=== PATIENT | male | born 1950 | race Caucasian/White ===

== ENCOUNTER 2020-03-18 06:54 | Outpatient (NON) | payer MEDICARE, SELFPAY ==
[2020-03-18 22:15] LABS: SARS-CoV-2 RNA PCR Negative
== END 2020-03-18 06:55 ==
PROVIDERS: Visit Provider Nurse Practitioner
DX: Z20.822 Contact with and (suspected) exposure to COVID-19 (principal)
CPT/HCPCS: C9803; U0003; U0005

== ENCOUNTER 2024-07-29 11:04 | Emergency (ER) | payer MEDICARE, SELFPAY ==
--- NOTE | ~2024-07-29 | CT_ITS ---
CLINICAL INDICATION: Left flank pain COMPARISON: None. TECHNIQUE: Multiple contiguous axial images of the abdomen and pelvis were performed following the ad ministration of with 100 mL Omnipaque-350 intravenous contrast The dose-length product (DLP) was 686.64 mGy-cm. Automated exposure control and iterative reconstruction technique were employed. FINDINGS/OBSERVATIONS: Visualized lower thorax: Trace bibasilar atelectasis. The remainder of the bilateral lung bases are clear. The heart is of normal size, without pericardial effusion. Small hiatal hernia is present. Liver: The liver demonstrates homogeneous enhancement and is not enlarged. Gallbladder and biliary system: The gallbladder is only minimally distended, and otherwise unremarkable. Pancreas: The pancreas enhances homogeneously without ductal dilatation. Spleen: Punctate calcifications identified within the splenic parenchyma, suggesting prior granulomat ous disease. The remainder of the spleen otherwise enhances homogeneously and is not enlarged. Kidneys: The bilateral kidneys enhance symmetrically without hydronephrosis or renal calculi. Adrenal glands: Unremarkable. Gastrointestinal tract: Significant fecal stasis within the right colon and rectum with moderate gaseous distention. Appendix: The air-filled appendix is of normal caliber (axial series, images 96 through 103). Vasculature: Calcified atherosclerotic disease without aneurysmal dilatation. Lymph nodes: No pathologically enlarged or morphologically suspicious lymph nodes within the retroperitoneum or at the root of the mesentery. Pelvic structures:Evaluation of the portion of the visualized bladder demonstrates thickened lozano an d mild distention. Evaluation of the deep pelvis is limited secondary to streak metallic artifact from patient's bilater al hip prostheses. Body wall and musculoskeletal: Prior right inguinal hernia repair. Age-appropriate degenerative disease within the lumbosacral spine most prominent at the level of L5/S 1 with osteophyte formation, disc space narrowing, endplate changes and vacuum phenomena. IMPRESSION: No acute findings within the abdomen or pelvis. Innumerable nonacute findings, as detailed above. Reviewed, dictated and finalized at location A.
--- OUTSIDE RECORDS SUMMARY | 2024-07-29 11:07 | XMS_ITS | Continuity of Care Document ---
Author Organization [facility] [place] Address [address] [place] [id number] Phone Care Team Providers Care Recreation Therapy Teacher Name Role Phone Jason Flanagan MD Unavailable Unavailable Advance Directives Directive Yes / No Effective Date File Name No Information Encounters Encounter Description Practice Location Reason(s) For Visit Diagnoses Date Provider Providers Copied on Encounter [facility] [place], [address] [place] [address], [id number], tel:[phone] [facility] 720 No Information Masha Gomez. [address] [facility], [address], [place], [place], [id number], [place]. tel:[phone] Referring Provider: Jose Alberto Shelby, [address] [facility], [place], [address]. tel:[phone] Family History Family Member Type Diagnosis Age At Onset No Information Payers Payer name Insurance type Covered alliance party ID Authoriza tion(s) BCBS PPO BL [id number] Social History Type Description Quantity Date Captured Comments Sex Male Smoking Status No Information Chief Complaint And Reason For Visit No Information Reason For Referral Reason For Referral No Information History Of Present Illness Encounter Date Complaint History Of Prese nt Illness No Information Functional Status Date Functional Assessmen t No Information Instructions Date Instruction Additional Infor mation No Information Assessments Type Assessment Date No Information Patient Care Teams Name Effective Dates (start - stop) Status Members No Information
--- OUTSIDE RECORDS SUMMARY | 2024-07-29 11:07 | XMS_ITS | Patient Health Record ---
Author Organization [facility] Billing Info Address [address] [place] [id number] Care Team Providers Care Media Services Director Name Role Phone María Elena Lopez Primary Care Provider NUZHAT Corea [phone] Reason For Referral No Information Medications Medication SIG (Take, Route, Frequency, Duration) Notes Start Date End Date Status Carbidopa-Levodopa 25-100 MG 1/2 tablet Orally five times per day Active Pramipexole Dihydrochloride 1 MG 2 tablet Orally TID Active Rasagiline Mesylate 1 MG 1 tablet Orally Once a day for 30 day(s) Active Trihexyphenidyl HCl 2 MG 1 tablet Orally TID for 90 day(s) Active Amantadine HCl 100 MG 2 capsules Orally TID Active Social History Tobacco Use: Social History Observation Description Date Details (start date - stop date) Never Smoker NA - NA Tobacco Status: Question Answer Notes Patient is a never smoker non tobacco user Problems Problem Type SNOMED Code ICD Code Onset Dates Problem Status W/U Status Risk Notes Problem 18971009 Parkinson disease (G20) Active confirmed Advanced. Exhibits choreoathetoid dyskinesia, rare akinesia, little tremor. Moderate risk for falls. Problem [id number] At risk for falls (Z91.81) Active confirmed PT referral is appropriate Plan Of Treatment No Information Insurance Providers Payer Name Payer Address Payer Phone Subscriber Number Group Number Insured Name Patient Relationship to Insured Coverage Start Date Coverage End Date [employer] H[employer] MEDICARE ADVG PLAN [address] [place], [place] [id number] Self - patient is the insured 9 9 Medical (General) History Medical History History ICD Code Parkinsons Surgical History Surgery Date(Month/Year) hip replacement x2 hernia repair bilat Hospitalization History Reason Date(Month/Year) hip replacement x2
[2024-07-29 11:23] VITALS: BP 100/57; PULSE 80; RESP 17; TEMP 36.4; O2SAT 96
--- NOTE | 2024-07-29 12:36 | ED_ITS ---
HPI - General Adult General Chief complaint: Urogenital-Male Stated complaint: left flank pain Time Seen by Provider: 07/29/24 12:33 Source: patient and family Mode of arrival: ambulatory Limitations: no limitations History of Present Illness HPI narrative: 73 years old white male came from home by private car with pain at the left flank area which started immediately while trying to strain down to have a bowel movement. History of constipation, not on any medications, last good bowel movement was 4 days ago. Left flank pain is sharp, stabbing, constant, denies any fever, chills, nausea, vomiting or urinary symptoms or having similar pain. History of Parkinson and intermittent hyponatremia. Related Data Home Medications ?Medication ?Instructions ?Recorded ?Confirmed ?Last Taken ?Type amantadine HCl 100 mg capsule 100 mg PO QID 07/29/24 07/29/24 Unknown History carbidopa 25 mg-levodopa 100 mg 1 tablet PO QID 07/29/24 07/29/24 Unknown History tablet pramipexole 1 mg tablet 1.5 mg PO QPM 07/29/24 07/29/24 Unknown History Allergies Allergy/AdvReac Type Severity Reaction Status Date / Time No Known Allergies Allergy Verified 07/29/24 12:30 Review of Systems 2 Review of Systems: All systems reviewed & are unremarkable except as noted in HPI and below Exam 2 Narrative: General appearance: Well-developed, well-nourished Skin: Normal color Head: Normocephalic, nontraumatic Eyes: Clear conjunctiva ENT: Oropharynx normal, ears normal, nose normal Neck: Supple, nontender Chest and respiratory: Airway patent, no respiratory distress, no accessory muscle use Heart: Regular rate/rhythm Abdomen: Soft, nontender, no organomegaly, quiet bowel sounds, mild tenderness left flank area, no bruises, no swelling or rash Vascular: Normal peripheral pulses, normal capillary refill. 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 is normal as tested, no gross motor deficit Course Vital Signs Vital signs: Vital Signs Temperature 36.4 C 07/29/24 11:23 Pulse Rate 80 07/29/24 11:23 Respiratory Rate 17 07/29/24 11:23 Blood Pressure 100/57 L 07/29/24 11:23 Pulse Oximetry 96 07/29/24 11:23 Oxygen Delivery Room Air 07/29/24 11:23 Temperature 36.4 C 07/29/24 11:23 Pulse Rate 80 07/29/24 11:23 Respiratory Rate 17 07/29/24 11:23 Blood Pressure 100/57 L 07/29/24 11:23 Pulse Oximetry 96 07/29/24 11:23 Oxygen Delivery Room Air 07/29/24 11:23 Medical Decision Making MDM Narrative Medical decision making narrative: Patient came with left flank pain started while straining down to have a bowel movement 2 days ago Vital signs are stable Physical examination showing severe involuntary muscular movement all over Differential diagnosis include muscular strain, kidney stone, urinary tract infection, splenic infarction, colitis, diverticulitis Blood workup today includes CBC, CMP, lipase showed WBC 14.8, otherwise insignificant findings Urinalysis showed no evidence of infection CT abdomen and pelvis with IV contrast showed no acute abnormality Left flank pain likely secondary to muscular strain/sprain. Discharged on anti-inflammatory and muscle relaxant. The pt was discharged to home.the pt,s condition upon discharge was fair,education was provided to the pt in reference to the final impression,discharge study results,treatment,prognosis and need for follow up . Differential Diagnosis Differential Diagnosis: As above Vital Signs Vital Signs: Vital Signs Temperature 36.4 C 07/29/24 11:23 Pulse Rate 80 07/29/24 11:23 Respiratory Rate 17 07/29/24 11:23 Blood Pressure 100/57 L 07/29/24 11:23 Pulse Oximetry 96 07/29/24 11:23 Oxygen Delivery Room Air 07/29/24 11:23 Temperature 36.4 C 07/29/24 11:23 Pulse Rate 80 07/29/24 11:23 Respiratory Rate 17 07/29/24 11:23 Blood Pressure 100/57 L 07/29/24 11:23 Pulse Oximetry 96 07/29/24 11:23 Oxygen Delivery Room Air 07/29/24 11:23 Lab Data 07/29/24 12:33 07/29/24 12:33 Labs: Lab Results 07/29/24 Range/Units 12:33 WBC 14.8 H (4.5-10.0) K/mm3 RBC 4.82 (4.6-6.20) M/mm3 Hgb 14.8 (14.0-18.0) g/dL Hct 45.6 (42.0-52.0) % MCV 94.6 (80-100) fl MCH 30.7 (26-34) pg MCHC 32.5 (32-36) g/dl RDW 13.9 (11.5-14.5) % Plt Count 330 (150-375) k/mm3 MPV 8.9 (7.4-10.4) fl Immature Gran % (Auto) 0.3 (0-0.5) % Neut % (Auto) 66.9 (45.5-73.1) % Lymph % (Auto) 23.9 (18.3-44.2) % [place] % (Auto) 7.1 (2.6-8.5) % Eos % (Auto) 1.4 (0-4.4) % Baso % (Auto) 0.4 (0.2-1.2) % Lymph # (Auto) 3.54 H (0.9-3.2) K/mm3 [place] # (Auto) 1.1 H (0.1-0.6) K/mm3 Eos # (Auto) 0.2 (0-0.3) K/mm3 Baso # (Auto) 0.1 (0.0-0.1) K/mm3 Abs Immat Gran (auto) 0.05 H (0.00-0.031) K/mm3 Absolute Neuts (auto) 9.9 H (1.3-6.7) K/mm3 Absolute Nucleated RBC 0.000 (0.0-0.012) K/mm3 Nucleated RBC % 0.0 (0.0-0.2) % Sodium 138 (137-145) mmol/L Potassium 4.5 (3.4-5.0) mmol/L Chloride 101 (98-107) mmol/L Carbon Dioxide 25 (22-30) mmol/L Anion Gap 12 (4-12) mmol/L BUN 21 H (9-20) mg/dL Creatinine 1.07 (0.7-1.3) mg/dL Estim Creat Clear Calc 56 ml/min Estimated GFR > 60 (59 - ) Glucose 96 (65-110) mg/dL Calcium 9.5 (8.4-10.2) mg/dL Total Bilirubin 1.8 H (0.2-1.3) mg/dL AST 36 (17-59) U/L ALT 18 (6-50) U/L Alkaline Phosphatase 153 H (38-126) U/L Total Protein 9.0 H (6.3-8.2) g/dL Albumin 4.7 (3.5-5.1) g/dL Urine Color Yellow (Yellow) Urine Appearance Clear (Clear) Urine pH 6.5 (5.0-9.0) Ur Specific [place] 1.015 (1.001-1.035) Urine Protein Negative (Negative) mg/dL Urine Glucose (UA) Negative (Negative) mg/dL Urine Ketones Trace H (Negative) mg/dL Ur Blood (Man) Negative (Negative) Urine Nitrate Negative (Negative) Urine Bilirubin Negative (Negative) Urine Urobilinogen 1.0 (<2.0) mg/dL Leukocyte Esterase Rfl Negative (Negative) LINNEA/UL Imaging Data Radiologist's impression: Impressions Abdomen/Pelvis CT 07/29/24 13:30 IMPRESSION: No acute findings within the abdomen or pelvis. Innumerable nonacute findings, as detailed above. Discharge Plan Discharge Clinical Impression: Acute left flank pain Patient Disposition: Home Condition: Stable Instructions: Flank Pain (ED) Additional Instructions: Return if symptoms are worsening , call your family physician for appointment, take Tylenol, ibuprofen as as needed for aches and pain, continue home medications. Patient Language: [place] Prescriptions: New cyclobenzaprine 5 mg tablet 5 mg PO TID Qty: 20 0RF No Action amantadine HCl 100 mg capsule 100 mg PO QID carbidopa-levodopa 25-100 mg tablet 1 tablet PO QID pramipexole 1 mg tablet 1.5 mg PO QPM Follow-up/Referrals: PHYSICIAN NOT ON STAFF,NONSTAFF [Non-Staff] -
[2024-07-29 12:41] LABS: Add Urine Microscopic? NO; Appearance Urine Clear (Clear); Basophils Absolute Auto 0.1 K/mm3 (0.0-0.1); Basophils Percent Auto 0.4 % (0.2-1.2); Bilirubin Urine Negative (Negative); Blood Urine Negative (Negative); Color Urine Yellow (Yellow); Eosinophils Absolute Auto 0.2 K/mm3 (0-0.3); Eosinophils Percent Auto 1.4 % (0-4.4); Glucose Urine UA Negative (Negative); Hematocrit 45.6 % (42.0-52.0); Hemoglobin 14.8 g/dL (14.0-18.0); Immature Granulocyte Absolute 0.05 K/mm3 (0.00-0.031); Immature Granulocyte Percent A 0.3 % (0-0.5); Ketones Urine Trace mg/dL (Negative); Leukocyte Esterase Ur Negative LEU/UL (Negative); Lymphocytes Absolute Auto 3.54 K/mm3 (0.9-3.2); Lymphocytes Percent Auto 23.9 % (18.3-44.2); Mean Corpuscular HGB Conc 32.5 g/dl (32-36); Mean Corpuscular Hemoglobin 30.7 pg (26-34); Mean Corpuscular Volume 94.6 fl (80-100); Mean Platelet Volume 8.9 fl (7.4-10.4); Monocytes Absolute Auto 1.1 K/mm3 (0.1-0.6); Monocytes Percent Auto 7.1 % (2.6-8.5); Neutrophils Absolute Auto 9.9 K/mm3 (1.3-6.7); Neutrophils Percent Auto 66.9 % (45.5-73.1); Nitrate Urine Negative (Negative); Platelet Count Result 330 k/mm3 (150-375); Protein Urine Negative (Negative); Red Blood Count 4.82 M/mm3 (4.6-6.20); Red Cell Distribution Width 13.9 % (11.5-14.5); Specific Grav Ur 1.015 (1.001-1.035); White Blood Count 14.8 K/mm3 (4.5-10.0); pH Urine 6.5 (5.0-9.0)
[2024-07-29 12:50] LABS: Alanine Aminotransferase 18 U/L (6-50); Albumin Level 4.7 g/dL (3.5-5.1); Alkaline Phosphatase 153 U/L (38-126); Anion Gap 12 mmol/L (4-12); Aspartate Amino Transferase 36 U/L (17-59); Bilirubin,Total 1.8 mg/dL (0.2-1.3); Blood Urea Nitrogen 21 mg/dL (9-20); Calcium 9.5 mg/dL (8.4-10.2); Carbon Dioxide 25 mmol/L (22-30); Chloride 101 mmol/L (98-107); Estimated CRCL calculation 56 ml/min; Estimated Glomerular Filt Rate > 60; Glucose 96 mg/dL (65-110); Potassium 4.5 mmol/L (3.4-5.0); Sodium 138 mmol/L (137-145)
[2024-07-29] MEDS: MORPHINE SULFATE (*CRX) 4 MG/ML INJ IV PUSH (13:06)
[2024-07-29] MEDS: SODIUM CHLORIDE 0.9% IV 1,000 ML 999 ML IV CONT (13:06)
[2024-07-29] MEDS: ONDANSETRON INJ 4 MG/2 ML VIAL IV PUSH (13:06)
[2024-07-29] MEDS: LORazepam INJ (*CRX) 2 MG/ML VIAL 1 MG IV PUSH (13:07)
--- OUTSIDE RECORDS SUMMARY | 2024-07-29 14:11 | XMS_ITS | Referral Summary ---
Author Organization [place] [id number] Address [address] [place] [address] Care Team Providers Care Multi Craft Maintenance Technician Name Role Phone Billy Ruiz MD Primary Care Provider + Judith Vee MD Unavailable [phone] Encounters Date Type Department Care Team Description 07/25/2024 2:30 PM CDT Office Visit [facility] Movement Disorders [address] 7[address] [place] [address] Mariola Biggs NP Parkinson's disease with dyskinesia and fluctuating manifestations (HCC) (Primary Dx); Levodopa-induced dyskinesia; Slow transit constipation; MCI (mild cognitive impairment) from Last 3 Months Allergies No known active allergies Medications carbidopa-levod opa (SINEMET) 25-100 mg per tabletIndicatio ns:Parkinsonism Take 1/2 tab in the morning, 1/4 tab at lunch, 1/4 tab at dinner, 1/2 tab at bedtime. 60 tablet 11 08/14/19 24 Active Additional Information Patient taking differently: 0.5 tablet oral 3 times daily, Take 1/2 tab at 8am, 3pm, 10pm, Indications: Parkinsonism, Reported on 07/25/2024 pramipexole (MIRAPEX) 1 mg tablet TAKE 1 & 1/2 (ONE & ONE-HALF) TABLETS BY MOUTH THREE TIMES DAILY 405 tablet 3 10/03/19 24 Active trihexyphenidyL (ARTANE) 2 mg tablet Take 2 tablets (4 mg total) by mouth 3 (three) times a day 540 tablet 3 06/13/19 25 026 Active rasagiline (AZILECT) 1 mg tablet Take 1 tablet (1 mg total) by mouth daily 90 tablet 3 06/22/19 25 026 Active albuterol 2.5 mg/0.5 mL solution for nebulization 04/25/19 25 Active amantadine (SYMMETREL) 100 mg capsule Take 1 capsule (100 mg total) by mouth 3 (three) times a day Morning, lunch, dinner. 270 capsule 3 07/24/19 25 026 Active carbidopa-levod opa CR (SINEMET CR) 50-200 mg per CR tablet Week 1: 1 tab in the morning. Week 2 & after: 1 morning, 1 midday. 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 Edgar Tilley is a 73 y.o. male, who presents for follow up for PD. He developed rest tremor in the left fifth finger in 1995. He later developed worsening of the tremor and was eventually diagnosed with PD [place] [address] Randolph. He was started on amantadine and carbidopa-levodopa was started in 2012. He was not able to tolerate higher doses of levodopa due to substantial and bothersome dyskinesia and thinks it also may have caused nausea. Rasagiline, pramipexole and Artane were added along the years, with better symptom control. He does have some mild impulse control issues with pramipexole. 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 There is family history of parkinsonism, including mother and maternal uncle. On examination, there is moderate parkinsonism, mostly symmetric and he is likely undertreated. He is still noting some wearing off from dose to dose but bigger doses of levodopa would likely worsen his dyskinesia. I cannot give him more pramipexole because I am concerned that he is having some mild and tolerable impulse control issues already (surrounding sex with his and gambling). They tried lowest dose Rytary (95 mg) and dyskinesia was worse. Insurance would not cover Dhivy. We will keep his doses the same today. We briefly discussed DBS today but he is not interested. They deny any substantial cognitive issues though he performed slightly low on MOCA. Given his dyskinesia threshold, I am not sure whether he would be an appropriate candidate for the sub-q pump. History and examination are compatible with PD. The absence of ataxia, significant dysautonomia, or prominent cognitive decline, along with significant response to levodopa and long duration of symptoms reinforce the diagnosis of PD. He is doing PT and I gave him info on APDA youtube channel exercises and PD Voice Project. He has some constipation and could try Miralax. Plan: - Continue amantadine, rasagiline, pramipexole, carbi/levo and Artane at the current dose. - Start carbi/levo CR. - Could look into RSB. - Start APDA youtube channel exercises and PD Voice Project. - Will give order for OT today. - Will get labs today. Potential medication side effects were discussed during the encounter. My total encounter time was 42 minutes which was spent in the activities documented in the note including interview, assessment, education, and support. This includes time spent prior to the visit with 24 hours of the visit and after the visit in direct care of the patient. This time does not include time spent in any separately reportable services. I am seeing this patient for a chronic condition and will have continued care with this patient. Assessment & Plan (02/15/2024 1:27 PM INDUSTRIAL ORGANIZATION MANAGER): Mr. Edgar Tilley is a 73 y.o. male, who presents for follow up for PD. He developed rest tremor in the left fifth finger in 1995. He later developed worsening of the tremor and was eventually diagnosed with PD in [address] Randolph. He was started on amantadine and carbidopa-levodopa was started in 2012. He was not able to tolerate higher doses of levodopa due to substantial and bothersome dyskinesia and thinks it also may have caused nausea. Rasagiline, pramipexole and Artane were added along the years, with better symptom control. He does have some mild impulse control issues with pramipexole. 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 There is family history of parkinsonism, including mother and maternal uncle . On examination, there is moderate parkinsonism, mostly symmetric and he is likely undertreated. He is still noting some wearing off from dose to dose but bigger doses of levodopa would likely worsen his dyskinesia. I cannot give him more pramipexole because I am concerned that he is having some mild and tolerable impulse control issues already (surrounding sex with his and gambling). They tried lowest dose Rytary (95 mg) and dyskinesia was worse. Insurance would not cover Dhivy. We will keep his doses the same today. We briefly discussed DBS today but he is not interested. They deny any substantial cognitive issues though he performed slightly low on MOCA. Given his dyskinesia threshold, I am not sure whether he would be an appropriate candidate for the sub-q pump. History and examination are compatible with PD. The absence of ataxia, significant dysautonomia, or prominent cognitive decline, along with significant response to levodopa and long duration of symptoms reinforce the diagnosis of PD. He is doing PT and I gave him info on APDA youtube channel exercises and PD Voice Project. He has some constipation and could try Miralax. Plan: 1. PD. - Continue amantadine, rasagiline, pramipexole, carbi/levo and Artane at the current dose. - Could try Miralax for constipation. - Start APDA youtube channel exercises and PD Voice Project. Potential medication side effects were discussed during the encounter. Assessment & Plan (08/17/2023 2:58 PM CDT): Mr. Edgar Tilley is a 73 y.o. male, who presents for follow up for PD. He developed rest tremor in the left fifth finger in 1995. He later developed worsening of the tremor and was eventually diagnosed with PD in [address] Randolph. He was started on amantadine and carbidopa-levodopa was started in 2012. He was not able to tolerate higher doses of levodopa due to substantial and bothersome dyskinesia and thinks it also may have caused nausea. Rasagiline, pramipexole and Artane were added along the years, with better symptom control. He does have some mild impulse control issues with pramipexole. 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 There is family history of parkinsonism, including mother and maternal uncle . On examination, there is moderate parkinsonism, mostly symmetric and he is likely undertreated. He is still noting some wearing off from dose to dose but bigger doses of levodopa would likely worsen his dyskinesia. I cannot give him more pramipexole because I am concerned that he is having some mild and tolerable impulse control issues already (surrounding sex with his ). At this time, we will try Dhivy to see if his insurance will cover that. I will also give him samples of 95 mg Rytary to try up to qid to see if he tolerates that better with longer benefit and less dyskinesia. We briefly discussed DBS today but he is not interested. They deny any substantial cognitive issues though he performed slightly low on MOCA. Given his dyskinesia threshold, I am not sure whether he would be an appropriate candidate for the sub-q pump. History and examination are compatible with PD. The absence of ataxia, significant dysautonomia, or prominent cognitive decline, along with significant response to levodopa and long duration of symptoms reinforce the diagnosis of PD. We will refer to PT and I gave him info on APDA youtube channel exercises and PD Voice Project. He has some constipation and could try Miralax. Plan: 1. PD. - Continue amantadine, rasagiline, pramipexole and Artane at the current dose. - May try Dhivy to see if that is easier to break pills into fourths (if his insurance will cover). - May also try Rytary 95 mg, 1 tab up to qid (in place of carbi/levo) and I gave samples to him and his family today. - Could try Miralax for constipation. - Start APDA youtube channel exercises and PD Voice Project. Potential medication side effects were discussed during the encounter. Assessment & Plan (02/07/2023 12:19 PM INDUSTRIAL ORGANIZATION MANAGER): Mr. Edgar Tilley is a 72 y.o. male, who presents for follow up for PD. He developed rest tremor in the left fifth finger in 1995. He later developed worsening of the tremor and was eventually diagnosed with PD in [address] Randolph. He was started on amantadine and carbidopa-levodopa was started in 2012. He was not able to tolerate higher doses of levodopa due to dyskinesia and thinks it also may have caused nausea. Rasagiline, pramipexole and Artane were added along the years, with better symptom control. He does have some mild impulse control issues with pramipexole. 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 There is family history of parkinsonism, including mother and maternal uncle . On past examination, there is moderate parkinsonism, mostly symmetric. He is still noting some wearing off from dose to dose but bigger doses of levodopa would likely worsen his dyskinesia. I cannot give him more pramipexole because I am concerned that he is having some mild and tolerable impulse control issues already (surrounding sex with his ). At this time, we will keep his doses the same and if needed, he can take an extra half tab of carbi/levo as needed for wearing off. We briefly discussed DBS today but he is not interested. They deny any substantial cognitive issues. Given his dyskinesia threshold, I am not sure whether he would be an appropriate candidate for the sub-q pump. He may be a candidate for Rytary but unfortunately, it is too expensive for them to afford. History and examination are compatible with PD. The absence of ataxia, significant dysautonomia, or prominent cognitive decline, along with significant response to levodopa and long duration of symptoms reinforce the diagnosis of PD. We will refer to PT and I gave him info on APDA youtube channel exercises and PD Voice Project. He has some constipation and could try Miralax. Plan: 1. PD. - Continue carbidopa/levodopa IR 25-100 mg, amantadine, rasagiline, pramipexole and Artane at the current dose. - Could try Miralax for constipation. - Start APDA youtube channel exercises and PD Voice Project. - We will send an rx for PT locally. Potential medication side effects were discussed during the encounter. Assessment & Plan (07/18/2022 3:37 PM CDT): Mr. Edgar Tilley is a 71 y.o. male, who presents for follow-up for Parkinson's disease (PD), with levodopa-induced dyskinesia. He is better since the last visit. Mobility is better. He is able to walk unassisted and continues to play golf. He is working with PT and it has really helped him. He tolerates the medication well with minimal dyskinesia. His MDS-UPDRS is better compared to the last visit. As discussed, he is doing well and does not require medication adjustment. He and his family are pleased with symptom control. Plan: 1. Continue carbidopa-levodopa, rasagiline, pramipexole, Artane and amantadine at the same dose. Potential medication side effects were discussed during the encounter. Assessment & Plan (03/11/2022 12:51 PM INDUSTRIAL ORGANIZATION MANAGER): Mr. Edgar Tilley is a 71 y.o. male, who presents to [facility] PD. He developed rest tremor in the left fifth finger in 1995. He later developed worsening of the tremor and was eventually diagnosed with PD in [address] Randolph. He was started on amantadine and carbidopa-levodopa was started in 2012. He was not able to tolerate higher doses of levodopa due to dyskinesia and thinks it also may have caused nausea. Rasagiline, pramipexole and Artane were added along the years, with better symptom control and no side effects. 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 There is family history of parkinsonism, including mother and maternal uncle. On examination, there is moderate parkinsonism, mostly symmetric. He is still noting some wearing off from dose to dose but bigger doses of levodopa would likely worsen his dyskinesia. At this time, we will increase his pramipexole, watching for side effects. He has no impulse control issues. History and examination are compatible with PD. The absence of ataxia, significant dysautonomia, or prominent cognitive decline, along with significant response to levodopa and long duration of symptoms reinforce the diagnosis of PD. We will refer to PT and I gave him info on APDA youtube channel exercises and PD Voice Project. Plan: 1. PD. - Continue carbidopa/levodopa IR 25-100 mg, amantadine, rasagiline, and Artane at the current dose. - Increase pramipexole as directed. - Start APDA youtube channel exercises and PD Voice Project. - We gave rx for PT. Potential medication side effects were discussed during the encounter. Assessment & Plan (07/26/2021 3:24 PM CDT): Mr. Edgar Tilley is a 70 y.o. male, who presents for follow-up for PD, complicated by levodopa-induced dyskinesias. He is overall doing ok, but the gait is still bothersome to him. He tolerates levodopa well and does not have motor fluctuations. He has mild dyskinesias, which are not bothersome. His MDS-UPDRS is stable compared to the last visit, with notable gait changes. We reviewed the risk of falling and how we can optimize the treatment. He should start LSVT-BIG first and if no improvement, we can consider a titration of carbidopa-levodopa. We will continue the other medications for now, but we may reassess the need for them once there is a better control of the gait. - Referral to LSVT-BIG. - Continue carbidopa-levodopa at the same dose, but can try to take the medication in a different schedule: 8 am, 1 pm, 7 pm. If there is no improvement of the gait after PT, he should contact the clinic so that we can increase the dose of levodopa. - Continue Artane, pramipexole, amantadine and rasagiline at the same dose. Potential medication side effects were discussed during the encounter. Assessment & Plan (01/15/2021 11:10 AM INDUSTRIAL ORGANIZATION MANAGER): Mr. Edgar Tilley is a 70 y.o. male, who presents for follow-up for Parkinson's disease (PD). 1. PD. He is about the same since the last visit. He continues to be very active and at times requires some support for the mobility, but is overall quite independent. He is tolerating his medications wthout any side effects. I answered questions about physical exercise and PD. - Continue carbidopa/levodopa IR 25-100 mg, amantadine, pramipexole, rasagiline, and Artane at the current dose. - Continue regular exercise program. Potential medication side effects were discussed during the encounter. Assessment & Plan (04/10/2020 9:31 PM INDUSTRIAL ORGANIZATION MANAGER): Mr. Edgar Tilley is a 69 y.o. male, who presents to [facility] PD. He developed rest tremor in the left fifth finger in 1995. He later developed worsening of the tremor and was eventually diagnosed with PD in [address] Randolph. He was started on amantadine and carbidopa-levodopa was started in 2012. He was not able to tolerate higher doses of levodopa due to dyskinesias. Rasagiline, pramipexole and Artane were added along the years, with good symptom control and no side effects. In the last summer, while living in [place], he had a deterioration of his symptoms and was admitted to the hospital, where he was found to have hyponatremia of unclear etiology. Prior to the admission, his local neurologist had stopped Artane. Since the hospital stay, he has not returned to his baseline. He lost a lot of weight and still feels weak. He has worked with his with a home exercise regimen. 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 There is family history of parkinsonism, including mother and maternal uncle. On examination, there is moderate parkinsonism, mostly symmetric. History and examination are compatible with PD. The absence of ataxia, significant dysautonomia, or prominent cognitive decline, along with significant response to levodopa and long duration of symptoms reinforce the diagnosis of PD. We discussed disease pathophysiology and treatment strategies for PD. The recent hospital stay with hyponatremia contrinuted to deconditioning, which probably is slowing his recovery to prior to the last summer. We discussed the importance of physical exercise and its positive effects in disease progression. He talked about LSVT- BIG and how it could help with the gait, but he does not feel safe in rehab centers with the pandemic. Plan: 1. PD. - Continue carbidopa/levodopa IR 25-100 mg, amantadine, pramipexole, rasagiline, and Artane at the current dose. - Could consider a referral to physical therapy - LSVT-BIG in the future. - Continue exercise routine. - APDA packet. Potential medication side effects were discussed during the encounter. Hip pain 11/16/2017 Closed fracture of midcervical section of femur 04/23/2015 Immunizations Immunization Administration Dates Next Due Influenza, Trivalent, High D ose, Split, Preservative Free, Intramuscular 04/09/2024 Pfizer SARS-CoV-2 Monovalent Vaccination (12+ Yrs) PURPLE 10/24/2020 Tdap 10/26/2022 Social History Tobacco Use Types Packs/Day Years Used Date Smoking Tobacco: Never Tobacco Cessation:Counseling Given: Not Answered Alcohol Use Standard Drinks/Week Comments Yes 7 (1 standard drink = 0.6 oz pur e alcohol) Low calorie beer and wine Personal Safety Answer Date Recorded Have you ever been in or are you currently in a harmful physical or emotional relationship or is someone making you feel afraid or unsafe? 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 Not on file Not on file Not on file Last Filed Vital Signs Vital Sign Reading Time Taken Comments Blood Pressure 153/73 07/25/2024 2:30 PM CDT Pulse 75 07/25/2024 2:30 PM CDT Temperature 36.3 C (97.3 F) 07/25/2024 2:30 PM CDT Respiratory Rate 18 01/15/2023 8:10 PM INDUSTRIAL ORGANIZATION MANAGER Oxygen Saturation 99% 01/15/2023 8:10 PM INDUSTRIAL ORGANIZATION MANAGER Inhaled Oxygen Concentration - - Weight 70.4 kg (155 lb 3.2 oz) 07/25/2024 2:30 P M CDT Height 175.3 cm (5' 9) 07/25/2024 2:30 PM CDT Body Mass Index 22.92 07/25/2024 2:30 PM CDT Plan of Treatment Not on file Insurance [facility] Care Teams Multi Craft Maintenance Technician Relationship Specialty Start Date End Date Billy Ruiz [place] [address] PCP - General Family Medicine 10/04/19 [place] [id number] Referring Physician Nurse Practitioner 10/04/19
--- OUTSIDE RECORDS SUMMARY | 2024-07-29 14:11 | XMS_ITS | Continuity of Care Document ---
Author Organization [facility] Address [address] [place] [phone] Phone Care Team Providers Care Chemical Dependency Counselor Name Role Phone Jason Flanagan MD Unavailable Unavailable Advance Directives Directive Yes / No Effective Date File Name No Information Encounters Encounter Description Practice Location Reason(s) For Visit Diagnoses Date Provider Providers Copied on Encounter [facility], [address] [place] [address], [id number], tel:[phone] [facility] 720 No Information Masha Gomez. [address] [facility], [address], [place], [place], [id number], [place]. tel:[phone] Referring Provider: Jose Alberto Shelby, [address] [facility], [place], [address]. tel:[phone] Family History Family Member Type Diagnosis Age At Onset No Information Payers Payer name Insurance type Covered libertarian ID Authoriza tion(s) BCBS PPO [id number] Social History Type Description Quantity Date Captured [...]
--- OUTSIDE RECORDS SUMMARY | 2024-07-29 14:11 | XMS_ITS | Clinical Summary ---
Author Organization [place] [id number] Address [address] [place] [address] Care Team Providers Care Rn Access Name Role Phone Billy Ruiz MD Primary Care Provider + Judith Vee MD Unavailable [phone] Allergies No known active allergies Medications carbidopa-levod [...] patient. Assessment & Plan (02/15/2024 1:27 PM TECHNICAL SUPPORT TECHNICIAN): Mr. Edgar Tilley is a 73 y.o. [...] encounter. Assessment & Plan (02/07/2023 12:19 PM TECHNICAL SUPPORT TECHNICIAN): Mr. Edgar Tilley is a 72 y.o. [...] encounter. Assessment & Plan (03/11/2022 12:51 PM TECHNICAL SUPPORT TECHNICIAN): Mr. Edgar Tilley is a 71 y.o. male, who presents to [facility] care for PD. He developed rest tremor [...] encounter. Assessment & Plan (01/15/2021 11:10 AM TECHNICAL SUPPORT TECHNICIAN): Mr. Edgar Tilley is a 70 y.o. [...] encounter. Assessment & Plan (04/10/2020 9:31 PM TECHNICAL SUPPORT TECHNICIAN): Mr. Edgar Tilley is a 69 y.o. male, who presents to establish care for PD. He developed rest tremor [...] In the last summer, while living in [place], he had a deterioration of his symptoms [...] fracture of midcervical section of femur 04/23/2015 Encounters Date Type Department Care Team Description 07/25/2024 2:30 PM CDT Office Visit [facility] [address] 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); Levodopa-induced dyskinesia; Slow transit constipation; MCI (mild cognitive impairment) from Last 3 Months Immunizations Immunization Administration Dates Next Due Influenza, Trivalent, High D ose, Split, Preservative Free, Intramuscular 04/09/2024 Pfizer SARS-CoV-2 Monovalent Vaccination (12+ Yrs) PURPLE 10/24/2020 Tdap 10/26/2022 Surgical History Surgery Date Site/Laterality Comments TOTAL HIP ARTHROPLASTY Bilateral HERNIA REPAIR Family History Medical History Relation Name Comments Parkinsonism Mother Tremor Mother Parkinsonism Mother's Brother Relation Name Status Comments Mother Mother's Brother Social History Tobacco Use Types Packs/Day Years [...] 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 on file Not on file Not on file Obstetrics History Last Filed Vital Signs Vital Sign Reading Time Taken Comments Blood Pressure 153/73 07/25/2024 2:30 PM CDT Pulse 75 07/25/2024 2:30 PM CDT Temperature 36.3 C (97.3 F) 07/25/2024 2:30 PM CDT Respiratory Rate 18 01/15/2023 8:10 PM TECHNICAL SUPPORT TECHNICIAN Oxygen Saturation 99% 01/15/2023 8:10 PM TECHNICAL SUPPORT TECHNICIAN Inhaled Oxygen Concentration - - Weight 70.4 kg (155 lb 3.2 oz) 07/25/2024 2:30 P M CDT Height 175.3 cm (5' 9) 07/25/2024 2:30 PM CDT Body Mass Index 22.92 07/25/2024 2:30 PM CDT Plan of Treatment Health Maintenance Due Date Last Done Comments Colon Cancer Screening-Colonoscopy 1950 Fall Risk Assessment 1950 Hepatitis C Screening 1950 Hepatitis B Screening 1968 Pneumococcal vaccine 65+ (1 of 1 - PCV) 2000 Zoster Vaccine (1 of 2) 2000 Well Visit 65+ 08/06/2015 Covid-19 Vaccine ( season) 2023 10/24/2020, 05/23/2020, 05/02/2020 Depression Screening 08/13/2024 08/14/2023 DTaP/Tdap/Td Vaccine (2 - Td or Tdap) 10/26/2032 Influenza Vaccine Completed 04/09/2024 Insurance [facility] [employer] Care Teams Rn Access Relationship Specialty Start Date End Date Billy Ruiz [place] [address] [place] [address] PCP - General Family Medicine 10/04/19 Judith Vee [place] [address] [place] [address] Referring Physician Nurse Practitioner 10/04/19
[2024-07-29 14:52] VITALS: TEMP 36.7
== END 2024-07-29 14:53 | disposition home or self-care (01) ==
PROVIDERS: Emergency Medicine; Emergency Provider Emergency Medicine
DX: R10.9 Unspecified abdominal pain (principal); G20.A1 Parkinson's disease without dyskinesia, without mention of fluctuations
CPT/HCPCS: 36415; 74177; 80053; 81003; 85025; 96361; 96374; 96375; 99284; J2060; J2270; J2405; J7030; Q9967